=== PATIENT | male | born 1985 | race Caucasian/White ===

== ENCOUNTER 2019-12-15 16:43 | Inpatient (IN) | payer OTHER ==
[2019-12-15 17:33] VITALS: BMI 23.0
--- NOTE | 2019-12-15 18:31 | HP ---
COWS - Scale Resting Pulse: 1= [place] 81-100 Sweatin=Flushed/Facial Moisture Restless Observation: 0= Sits Still Pupil Size: 0= Normal to Room Light Bone or Joint Aches: 4=Acute Joint/Muscle Pain Runny Nose/ Eye Tearin= Runny Nose/Eyes GI Upset > 30mins: 3= Vomiting/Diarrhea (vomiting x 1, diarrhea x 2) Tremor Observation: 2= Slight Tremor Visible Yawning Observation: 1= 1-2x During Session Anxiety or Irritability: 2=Irritable/Anxious Goose Flesh Skin: 0=Smooth Skin COWS Score: 17 CIWA Score - Admission Criteria OASAS Guidelines: Admission for Medically Managed Detox: Requires at least one of the followin. CIWA greater than 12 2. Seizures within the past 24 hours 3. Delirium tremens within the past 24 hours 4. Hallucinations within the past 24 hours 5. Acute intervention needed for co occurring medical disorder 6. Acute intervention needed for co occurring psychiatric disorder 7. Severe withdrawal that cannot be handled at a lower level of care (continued vomiting, continued diarrhea, abnormal vital signs) requiring intravenous medication and/or fluids 8. Admitting History and Physical - Smoking History Smoking history: Current every day smoker Have you smoked in the past 12 months: Yes Aproximately how many cigarettes per day: 20 Admission [facility] Chief Complaint: Seeking admission to detox from heroin Allergies/Adverse Reactions: Allergies Allergy/AdvReac Type Severity Reaction Status Date / Time No Known Allergies Allergy Verified 12/15/19 17:27 History of Present Illness: 34 years old male with 13 years of heroin dependence is seeking admission to detox. This is his first admission to [facility] and he reports that his last detox admission was at [facility]. Patient reports insignificant period of sobriety and he uses 20 bags heroin intravenously daily. He reports medical history of Hep. C, psych. history depression, anxiety and denies suicidal attempt / suicidal ideation at this time. He is unemployed, homeless and denies legal issues. He reports blackouts and history of drug overdose twice. Last overdose was past Thursday. Exam Limitations: No Limitations - Ebola screening Have you traveled outside of the country in the last 21 days: No Have you had contact with anyone from an Ebola affected area: No Have you been sick,other than usual withdrawal symptoms: No Do you have a fever: No - Review of Systems Constitutional: Chills, Malaise, Night Sweats, Changes in sleep EENT: reports: Nose Congestion Respiratory: reports: No Symptoms reported Cardiac: reports: No Symptoms Reported GI: reports: Diarrhea (x 2), Nausea, Poor Appetite, Poor Fluid Intake, Vomiting (x 1), Abdominal cramping : reports: No Symptoms Reported Musculoskeletal: reports: Back Pain, Muscle Pain Integumentary: reports: Dryness, Flushing Neuro: reports: Tremors Endocrine: reports: No Symptoms Reported Hematology: reports: No Symptoms Reported Psychiatric: reports: Anxious Other Systems: Reviewed and Negative Patient History - Patient Medical History Hx Anemia: No Hx Asthma: No Hx Chronic Obstructive Pulmonary Disease (COPD): No Hx Cancer: No Hx Cardiac Disorders: No Hx Congestive Heart Failure: No Hx Hypertension: No Hx Hypercholesterolemia: No HX Cerebrovascular Accident: No Hx Seizures: No Hx Diabetes: No Hx Gastrointestinal Disorders: No Hx Liver Disease: No Hx Genitourinary Disorders: No Hx Sexually Transmitted Disorders: No Hx Renal Disease (ESRD): No Hx Thyroid Disease: No Hx Human Immunodeficiency Virus (HIV): No (Negative 2020) Hx Hepatitis C: Yes (Not treated) Hx Depression: Yes (+ anxiety- Not on medication) Hx Suicide Attempt: No (Denies suicidal ideation at this time) Hx Bipolar Disorder: No Hx Schizophrenia: No - Patient Surgical History Past Surgical History: Yes Hx Neurologic Surgery: No Hx Cataract Extraction: No Hx Cardiac Surgery: No Hx Lung Surgery: No Hx Abdominal Surgery: No Hx Appendectomy: No Hx Cholecystectomy: No Hx Genitourinary Surgery: No Hx Section: No Hx Orthopedic Surgery: Yes (Right arm 2006) Anesthesia Reaction: No - PPD History Previous Implant?: Yes Documented Results: Negative w/o proof Implanted On Prior R Admission?: No PPD to be Administered?: Yes - Reproductive History Patient is a Female of Child Bearing Age (11 -55 yrs old): No (Male) - Smoking Cessation Smoking history: Current every day smoker Have you smoked in the past 12 months: Yes Aproximately how many cigarettes per day: 20 Hx Chewing Tobacco Use: No Initiated information on smoking cessation: Yes 'Breaking Loose' booklet given: 12/15/19 - Substance & Tx. History Hx Alcohol Use: No Hx Substance Use: Yes Substance Use Type: Cocaine, Heroin, Marijuana, Opiates Hx Substance Use Treatment: Yes ([facility]) - Substances abused Heroin Substance route: Injection Frequency: Daily Amount used: 20 BAGS Age of first use: 21 Date of last use: 12/14/19 Cocaine Substance route: Injection Frequency: 1-2 times per week Amount used: 4 BAGS Age of first use: 33 Date of last use: 12/14/19 Admission Physical Exam [facility] - Vital Signs Vital Signs: Vital Signs - 24 hr 12/15/19 17:28 Temperature 98.4 F Pulse Rate 100 H Respiratory 18 Rate Blood Pressure 121/77 - Physical General Appearance: Yes: Moderate Distress, Tremorous, Sweating, Anxious HEENTM: Yes: Within Normal Limits Respiratory: Yes: Lungs Clear, Normal Breath Sounds, No Respiratory Distress Neck: Yes: Within Normal Limits Breast: Yes: Breast Exam Deferred, Within Normal Limits Cardiology: Yes: Tachycardia Abdominal: Yes: Normal Bowel Sounds, Soft Genitourinary: Yes: Within Normal Limits Back: Yes: Normal Inspection Musculoskeletal: Yes: Back pain, Muscle Pain Extremities: Yes: Tremors Neurological: Yes: Within Normal Limits Integumentary: Yes: Warm, Track Wilson (Neck) Lymphatic: Yes: Within Normal Limits - Diagnostic (1) Opioid dependence with withdrawal Current Visit: Yes Status: Acute (2) Cocaine dependence Current Visit: Yes Status: Chronic Qualifiers: Substance use status: in withdrawal Qualified Code(s): F14.23 - Cocaine dependence with withdrawal (3) Marijuana dependence Current Visit: Yes Status: Chronic (4) Nicotine dependence Current Visit: Yes Status: Acute Qualifiers: Nicotine product type: cigarettes Substance use status: uncomplicated Qualified Code(s): F17.210 - Nicotine dependence, cigarettes, uncomplicated (5) Hep C w/o coma, chronic Current Visit: Yes Status: Chronic (6) Depression Current Visit: Yes Status: Chronic Qualifiers: Depression Type: unspecified Qualified Code(s): F32.9 - Major depressive disorder, single episode, unspecified (7) Anxiety Current Visit: Yes Status: Chronic Cleared for Admission [facility] - Detox or Rehab [facility] Level of Care: Medically Managed Detox Regimen/Protocol: Methadone Claeared for Rehab Admission: No Breathalyzer - Breathalyzer Breathalyzer: 0 Urine Drug Screen - Test Device Lot number: [id number] Expiration date: 11/28/21 - Control Is test valid?: Yes - Results Drug screen NEGATIVE: No Urine drug screen results: THC-Marijuana, QUINTIN-Cocaine, FEN-Fentanyl, MOP-Opiates Inpatient Rehab Admission - Rehab Decision to Admit Inpatient rehab admission?: No
[2019-12-15] MEDS ORDERED: hydrOXYzine PAMOATE 25 MG CAPSULE (FP) PO PRN (18:47)
[2019-12-15] MEDS ORDERED: ONDANSETRON *ODT* 4 MG TABLET SL PRN (18:47)
[2019-12-15] MEDS ORDERED: MAGNESIUM HYDROX 2400MG/30ML ORAL SUSPENSION 30 ML CUP PO PRN (18:47)
[2019-12-15] MEDS ORDERED: BISMUTH SUBSALICYLATE 524 MG/30 ML UD PO PRN (18:47)
[2019-12-15] MEDS ORDERED: METHOCARBAMOL 500 MG TABLET PO PRN (18:47)
[2019-12-15] MEDS ORDERED: MAG HYDROX/AL HYDROX/SIMETH 30 ML UNIT-DOSE CUP PO PRN (18:47)
[2019-12-15] MEDS ORDERED: MENTHOL/PHENOL 1 EACH UD MM PRN (18:47)
[2019-12-15] MEDS ORDERED: NICOTINE POLACRILEX 2 MG GUM BUC PRN (18:47)
[2019-12-15] MEDS ORDERED: ACETAMINOPHEN 325 MG TABLET (FP) PO PRN ×2 (18:47)
[2019-12-15] MEDS ORDERED: MAGNESIUM CITRATE 300 ML BOTTLE PO PRN (18:47)
[2019-12-15] MEDS ORDERED: IBUPROFEN 400 MG TABLET (FP) PO PRN (18:47)
[2019-12-15] MEDS ORDERED: cloNIDine HCL 0.1 MG TABLET PO PRN (18:51)
[2019-12-15] MEDS ORDERED: METHADONE HCL 10 MG TABLET (FOR DETOX USE ONLY) PO ONE (19:30)
[2019-12-15] MEDS: MELATONIN 5 MG TABLETS PO SCH (23:00)
[2019-12-15] MEDS: THIAMINE HCL 100 MG TABLET (FP) PO SCH (23:01)
[2019-12-16] MEDS ORDERED: METHADONE HCL 5 MG TABLET (FOR DETOX USE ONLY) ONE (09:28)
[2019-12-16] MEDS ORDERED: METHADONE HCL 10 MG TABLET (FOR DETOX USE ONLY) ONE (09:29)
[2019-12-16] MEDS ORDERED: METHADONE (DETOX) 20 MG, METHADONE (DETOX) 5 MG PO ONE (10:00)
[2019-12-16] MEDS: NICOTINE 21 MG/24 HOURS TOPICAL PATCH TD SCH (10:08)
[2019-12-16] MEDS: PRENATAL VITAMINS W/ FOLIC ACID TABLET (FP) PO SCH (10:08)
--- NOTE | 2019-12-16 10:38 | EKG ---
Test Reason : Blood Pressure : / mmHG Vent. Rate : 082 BPM Atrial Rate : 082 BPM P-R Int : 148 ms QRS Dur : 090 ms QT Int : 376 ms P-R-T Axes : 046 036 044 degrees QTc Int : 439 ms NORMAL SINUS RHYTHM NORMAL ECG NO PREVIOUS ECGS AVAILABLE Confirmed by NORMAN SHEPPARD MD ([id number]) on 12/16/2019 10:37:36 AM Referred By: Confirmed By:NORMAN SHEPPARD MD
--- NOTE | 2019-12-16 15:02 | PN ---
BHS COWS - Scale Resting Pulse: 1= [place] 81-100 Sweatin= No chills or Flushing Restless Observation: 1= Difficult to Sit Still Pupil Size: 1= Pupils >than Normal Bone or Joint Aches: 2= Severe Diffuse Aches Runny Nose/ Eye Tearin= Nasal Congestion GI Upset > 30mins: 2= Nausea/Diarrhea Tremor Observation of Outstretched Hands: 2= Slight Tremor Visible Yawning Observation: 1= 1-2x During Session Anxiety or Irritability: 2=Irritable/Anxious Goose Flesh Skin: 0=Smooth Skin COWS Score: 13 S Progress Note (SOAP) Subjective: alert,irritable,anxious,interrupted sleep,pain in the body and back,aching pain,nausea Objective: 12/16/19 14:58 Vital Signs Temperature 98.1 F 12/16/19 12:40 Pulse Rate 83 12/16/19 12:40 Respiratory Rate 19 12/16/19 12:40 Blood Pressure 121/68 12/16/19 12:40 O2 Sat by Pulse Oximetry (%) 97 12/16/19 12:40 12/16/19 14:59 labs pending Assessment: 12/16/19 15:01 withdrawal symptom Plan: continue detox methadone regimen,valium 10 mgs po q 4 hrs prn for withdrawal for 72 hrs
[2019-12-16] MEDS: diazePAM 5 MG TABLET PO PRN (21:07)
[2019-12-16] MEDS: MELATONIN 5 MG TABLETS PO SCH (21:07)
[2019-12-16] MEDS: THIAMINE HCL 100 MG TABLET (FP) PO SCH (21:07)
--- NOTE | 2019-12-17 09:53 | PN ---
BHS COWS - Scale Resting Pulse: 0= [place] 80 or Below Sweatin= No chills or Flushing Restless Observation: 1= Difficult to Sit Still Pupil Size: 0= Normal to Room Light Bone or Joint Aches: 2= Severe Diffuse Aches Runny Nose/ Eye Tearin= None GI Upset > 30mins: 1= Stomach Cramp Tremor Observation of Outstretched Hands: 2= Slight Tremor Visible Yawning Observation: 0= None Anxiety or Irritability: 2=Irritable/Anxious Goose Flesh Skin: 0=Smooth Skin COWS Score: 8 BHS Progress Note (SOAP) Subjective: Complaints of anxiety, tremors, abdominal cramps and body aches. Objective: 12/17/19 09:49 Vital Signs (72 hours) 12/15/19 12/15/19 12/16/19 17:28 20:25 05:01 Temperature 98.4 F 97.3 F L 98.6 F Pulse Rate 100 H 80 75 Respiratory 18 18 18 Rate Blood Pressure 121/77 137/83 140/76 O2 Sat by Pulse 100 96 Oximetry (%) 12/16/19 12/16/19 12/16/19 09:08 12:40 17:05 Temperature 97.9 F 98.1 F 98.0 F Pulse Rate 83 83 78 Respiratory 18 19 18 Rate Blood Pressure 124/62 121/68 123/75 O2 Sat by Pulse 96 96 97 Oximetry (%) 12/16/19 20:37 Temperature 97.3 F L Pulse Rate 74 Respiratory 18 Rate Blood Pressure 134/86 O2 Sat by Pulse 98 Oximetry (%) Labs pending. Assessment: 12/17/19 09:50 Alert and oriented x 3, in no acute respiratory distress. Full ROM, ambulating in the unit without assistance. Withdrawal symptoms. Plan: Continue detox protocol.
[2019-12-17] MEDS ORDERED: METHADONE HCL 10 MG TABLET (FOR DETOX USE ONLY) PO ONE (10:00)
[2019-12-17] MEDS: NICOTINE 21 MG/24 HOURS TOPICAL PATCH TD SCH (10:19)
[2019-12-17] MEDS: PRENATAL VITAMINS W/ FOLIC ACID TABLET (FP) PO SCH (10:19)
[2019-12-17] MEDS: diazePAM 5 MG TABLET PO PRN (22:40)
[2019-12-17] MEDS: THIAMINE HCL 100 MG TABLET (FP) PO SCH (23:00)
[2019-12-17] MEDS: MELATONIN 5 MG TABLETS PO SCH (23:00)
[2019-12-18 09:38] VITALS: BP 124/73; PULSE 112; TEMP 98.2
[2019-12-18] MEDS ORDERED: METHADONE (DETOX) 10 MG, METHADONE (DETOX) 5 MG PO ONE (10:00)
[2019-12-18] MEDS: PRENATAL VITAMINS W/ FOLIC ACID TABLET (FP) PO SCH (10:25)
[2019-12-18] MEDS: NICOTINE 21 MG/24 HOURS TOPICAL PATCH TD SCH (10:25)
[2019-12-18 12:15] LABS: HEMATOCRIT 43.5 % (35.4-49); HEMOGLOBIN 14.3 GM/dL (11.7-16.9); MCH 27.2 pg (25.7-33.7); MCHC 32.9 g/dl (32.0-35.9); MEAN CELL VOLUME 82.6 fl (80-96); MEAN PLT VOLUME 8.5 fl (7.5-11.1); PLATELET COUNT 271 K/MM3 (134-434); RBC 5.26 M/mm3 (4.00-5.60); WHITE BLOOD COUNT 6.6 K/mm3 (4.0-10.0)
[2019-12-18 12:32] LABS: ALBUMIN 3.2 g/dl (3.4-5.0); BLOOD UREA NITROGEN 9.2 mg/dL (7-18); CALCIUM 8.8 mg/dL (8.5-10.1); CREATININE 0.8 mg/dL (0.55-1.3); POTASSIUM 4.2 mmol/L (3.5-5.1)
[2019-12-18 12:34] LABS: BILIRUBIN,TOTAL 0.2 mg/dL (0.2-1); TOT PROT 6.7 g/dl (6.4-8.2)
--- NOTE | 2019-12-18 13:38 | PN ---
BHS COWS - Scale Resting Pulse: 2= [place] 101-120 Sweatin= No chills or Flushing Restless Observation: 1= Difficult to Sit Still Pupil Size: 0= Normal to Room Light Bone or Joint Aches: 1= Mild Discomfort Runny Nose/ Eye Tearin= Nasal Congestion GI Upset > 30mins: 0= None Tremor Observation of Outstretched Hands: 0= None Yawning Observation: 0= None Anxiety or Irritability: 2=Irritable/Anxious Goose Flesh Skin: 0=Smooth Skin COWS Score: 7 BHS Progress Note (SOAP) Subjective: Complaints of anxiety, joints aches, irritability and sweats. Objective: 12/18/19 13:37 Vital Signs 12/18/19 09:32 Temperature 98.2 F Pulse Rate 112 H Respiratory 16 Rate Blood Pressure 124/73 Laboratory Last Values WBC 6.6 K/mm3 (4.0-10.0) 12/18/19 07:15 RBC 5.26 M/mm3 (4.00-5.60) 12/18/19 07:15 Hgb 14.3 GM/dL (11.7-16.9) 12/18/19 07:15 Hct 43.5 % (35.4-49) 12/18/19 07:15 MCV 82.6 fl (80-96) 12/18/19 07:15 MCH 27.2 pg (25.7-33.7) 12/18/19 07:15 MCHC 32.9 g/dl (32.0-35.9) 12/18/19 07:15 RDW 14.0 % (11.9-15.9) 12/18/19 07:15 Plt Count 271 K/MM3 (134-434) 12/18/19 07:15 MPV 8.5 fl (7.5-11.1) 12/18/19 07:15 Sodium 139 mmol/L (136-145) 12/18/19 07:15 Potassium 4.2 mmol/L (3.5-5.1) 12/18/19 07:15 Chloride 104 mmol/L (98-107) 12/18/19 07:15 Carbon Dioxide 26 mmol/L (21-32) 12/18/19 07:15 Anion Gap 9 MMOL/L (8-16) 12/18/19 07:15 BUN 9.2 mg/dL (7-18) 12/18/19 07:15 Creatinine 0.8 mg/dL (0.55-1.3) 12/18/19 07:15 Est GFR (CKD-EPI)AfAm 135.08 12/18/19 07:15 Est GFR (CKD-EPI)NonAf 116.55 12/18/19 07:15 Random Glucose 89 mg/dL (74-106) 12/18/19 07:15 Calcium 8.8 mg/dL (8.5-10.1) 12/18/19 07:15 Total Bilirubin 0.2 mg/dL (0.2-1) 12/18/19 07:15 AST 52 U/L (15-37) H 12/18/19 07:15 ALT 126 U/L (13-61) H 12/18/19 07:15 Alkaline Phosphatase 108 U/L (45-117) 12/18/19 07:15 Total Protein 6.7 g/dl (6.4-8.2) 12/18/19 07:15 Albumin 3.2 g/dl (3.4-5.0) L 12/18/19 07:15 Syphilis Serology Non-reactive (NONREACTIVE) 12/18/19 07:15 COVID-19 ([facility]AG) Not detected (Not Detected) 12/15/19 07:55 Labs noted. Assessment: 12/18/19 13:37 Patient was seen and examined at bedside. Alert and oriented x 3, in no acute respiratory distress. Full ROM, ambulatory without assistance. Withdrawal symptoms. Plan: Continue detox protocol.
--- NOTE | 2019-12-18 14:06 | DS ---
[facility] Detox Discharge Summary Admission Date: 12/15/19 Discharge Date: 12/18/19 - History Present History: Cocaine Dependence, Opioid Dependence Additional Comments: Left AMA , refused to wait to provider to speak to him or evaluate him. Pertinent Past History: History of Hep C, heroin, cocaine and nicotine use disorder. - Physical Exam Results Vital Signs: Vital Signs Temperature 98.2 F 12/18/19 09:32 Pulse Rate 112 H 12/18/19 09:32 Respiratory Rate 16 12/18/19 09:32 Blood Pressure 124/73 12/18/19 09:32 O2 Sat by Pulse Oximetry (%) 100 12/17/19 19:00 Vital Signs 12/18/19 09:32 Temperature 98.2 F Pulse Rate 112 H Respiratory 16 Rate Blood Pressure 124/73 Laboratory Last Values WBC 6.6 K/mm3 (4.0-10.0) 12/18/19 07:15 RBC 5.26 M/mm3 (4.00-5.60) 12/18/19 07:15 Hgb 14.3 GM/dL (11.7-16.9) 12/18/19 07:15 Hct 43.5 % (35.4-49) 12/18/19 07:15 MCV 82.6 fl (80-96) 12/18/19 07:15 MCH 27.2 pg (25.7-33.7) 12/18/19 07:15 MCHC 32.9 g/dl (32.0-35.9) 12/18/19 07:15 RDW 14.0 % (11.9-15.9) 12/18/19 07:15 Plt Count 271 K/MM3 (134-434) 12/18/19 07:15 MPV 8.5 fl (7.5-11.1) 12/18/19 07:15 Sodium 139 mmol/L (136-145) 12/18/19 07:15 Potassium 4.2 mmol/L (3.5-5.1) 12/18/19 07:15 Chloride 104 mmol/L (98-107) 12/18/19 07:15 Carbon Dioxide 26 mmol/L (21-32) 12/18/19 07:15 Anion Gap 9 MMOL/L (8-16) 12/18/19 07:15 BUN 9.2 mg/dL (7-18) 12/18/19 07:15 Creatinine 0.8 mg/dL (0.55-1.3) 12/18/19 07:15 Est GFR (CKD-EPI)AfAm 135.08 12/18/19 07:15 Est GFR (CKD-EPI)NonAf 116.55 12/18/19 07:15 Random Glucose 89 mg/dL (74-106) 12/18/19 07:15 Calcium 8.8 mg/dL (8.5-10.1) 12/18/19 07:15 Total Bilirubin 0.2 mg/dL (0.2-1) 12/18/19 07:15 AST 52 U/L (15-37) H 12/18/19 07:15 ALT 126 U/L (13-61) H 12/18/19 07:15 Alkaline Phosphatase 108 U/L (45-117) 12/18/19 07:15 Total Protein 6.7 g/dl (6.4-8.2) 12/18/19 07:15 Albumin 3.2 g/dl (3.4-5.0) L 12/18/19 07:15 Syphilis Serology Non-reactive (NONREACTIVE) 12/18/19 07:15 COVID-19 ([facility]) Not detected (Not Detected) 12/15/19 07:55 Labs noted. Pertinent Admission Physical Exam Findings: Withdrawal symptoms. - Medication Discharge Medications: Ambulatory Orders NK [No Known Home Medication] 12/15/19 - Diagnosis (1) Nicotine dependence Status: Chronic Qualifiers: Nicotine product type: cigarettes Substance use status: uncomplicated Qualified Code(s): F17.210 - Nicotine dependence, cigarettes, uncomplicated (2) Opioid dependence with withdrawal Status: Acute (3) Cocaine dependence Status: Chronic Qualifiers: Substance use status: in withdrawal Qualified Code(s): F14.23 - Cocaine dependence with withdrawal (4) Hep C w/o coma, chronic Status: Chronic - AMA Did Patient Leave Against Medical Advice: Yes
[2019-12-19] MEDS ORDERED: METHADONE HCL 10 MG TABLET (FOR DETOX USE ONLY) PO ONE (10:00)
[2019-12-20] MEDS ORDERED: METHADONE HCL 5 MG TABLET (FOR DETOX USE ONLY) PO ONE (06:00)
== END 2019-12-18 11:30 | disposition left against medical advice (07) | DRG 770 ==
LOC: YASAS 16:43 → Y6N 19:12
PROVIDERS: ADMIT Allergy & Immunology; ATTEND Allergy & Immunology
PROC: HZ2ZZZZ Detoxification Services for Substance Abuse Treatment (ICD-10-PCS; principal; 2019-12-15)
DX: F11.23 Opioid dependence with withdrawal (principal); F14.20 Cocaine dependence, uncomplicated; F12.20 Cannabis dependence, uncomplicated; F17.210 Nicotine dependence, cigarettes, uncomplicated; F41.9 Anxiety disorder, unspecified; F32.9 Major depressive disorder, single episode, unspecified; B18.2 Chronic viral hepatitis C; Z59.0 Homelessness
CPT/HCPCS: 36415; 80053; 85027; 86780; 93005; 93010; J0735; U0003